=== PATIENT | male | born 1970 | race African-American/Black ===

== ENCOUNTER 2017-01-31 00:01 | Inpatient (IN) | payer MEDICAID, OTHER ==
[~2017-01-31] VITALS: Ht 182.9 cm; Wt 81.6 kg
[2017-01-31 03:28] LABS: Basophils # (auto) 0.1 uL; Basophils % (auto) 0.6 % (0.0-2.0); Eosinophils # (auto) 0 uL; Eosinophils % (auto) 0.4 % (0.0-7.0); Hematocrit 41.5 % (41.0-53.0); Hemoglobin 13.5 g/dL (13.5-17.5); Lymphocytes # (auto) 2.3 uL; Lymphocytes % (auto) 24.8 % (10.0-50.0); Mean Corpuscular Hemoglobin 27.8 pg (28.0-32.0); Mean Corpuscular Hgb Conc. 32.6 g/dL (32.0-36.0); Mean Corpuscular Volume 85.3 fL (80.0-100.0); Mean Platelet Volume 8.4 fL (6.9-10.8); Monocytes # (auto) 0.7 uL; Monocytes % (auto) 7.4 % (0.0-12.0); Neutrophils # (auto) 6.1 uL; Neutrophils % (auto) 66.8 % (37.0-80.0); Platelet Count (auto) 196 10^3/uL (140-450); Red Cell Distribution Width 13.7 % (11.8-14.3); White Blood Cell 9.1 10^3/uL (4.4-10.8)
[2017-01-31 03:57] LABS: Albumin 3.6 g/dL (3.4-5.0); Calcium 8.9 mg/dL (8.5-10.1); Potassium 3.6 mmol/L (3.5-5.1)
[2017-01-31 03:59] LABS: Bilirubin, Total 0.7 mg/dL (0.2-1.0); Total Protein 8.1 g/dL (6.4-8.2)
[2017-01-31 09:08] LABS: Urine Bilirubin Negative (Negative); Urine Blood Negative /uL (Negative); Urine Color Yellow (Yellow); Urine Glucose Normal (Normal); Urine Ketone 2+ (Negative); Urine Mucus MODERATE (None Seen); Urine Nitrite Negative (Negative); Urine RBC <1 /hpf (0 - 3); Urine Squamous Epithelial Cell FEW /hpf (<5); Urine pH 5.5 (5.0-8.0)
[2017-01-31] MEDS ORDERED: NITROGLYCERIN 0.4 MG SL TAB SL PRN (13:15)
[2017-01-31] MEDS ORDERED: MORPHINE SULF INJ 2 MG/ML SYRINGE 1ML IV PRN ×2 (13:15)
[2017-01-31] MEDS ORDERED: HYDROcodone-ACET 5/325MG TAB PO PRN (13:15)
[2017-01-31] MEDS ORDERED: LACTULOSE 20Gm/30ML SOLN PO PRN (13:15)
[2017-01-31] MEDS ORDERED: ACETAMINOPHEN 500 MG TAB PO PRN (13:15)
[2017-01-31] MEDS ORDERED: LEVETIRACETAM 500 MG TAB PO ONE (13:15)
[2017-01-31] MEDS ORDERED: cefTRIAXone 1GM/10ml IVPUSH 10 ML IV ONE (13:15)
[2017-01-31] MEDS ORDERED: PROMETHAZINE HCL 25 MG/ML 1ML IV PRN (13:15)
[2017-01-31] MEDS ORDERED: TEMAZEPAM 15 MG CAP PO PRN (13:15)
[2017-01-31] MEDS ORDERED: LORazepam 2MG/ML-1ML VIAL IV PRN (13:15)
[2017-01-31] MEDS: SODIUM CHLORIDE 0.9% 1,000 ML IV SCH (13:30)
[2017-01-31] MEDS ORDERED: KEP500T PO (13:31)
[2017-01-31] MEDS: ENOXAPARIN SOD 40 MG/0.4 ML SYRINGE SC SCH (13:50)
[2017-01-31 14:47] VITALS: BP 126/81
[2017-01-31 17:00] VITALS: BP 113/77
[2017-01-31] MEDS: LORazepam 0.5 MG TAB PO PRN (18:37)
[2017-01-31 22:00] VITALS: BP 117/76
[2017-01-31] MEDS: LEVETIRACETAM 500 MG TAB PO SCH (23:04)
[2017-02-01] MEDS: SODIUM CHLORIDE 0.9% 1,000 ML IV SCH ×2 (02:23→15:01)
[2017-02-01 04:30] VITALS: BP 118/76
[2017-02-01 08:50] VITALS: BP 108/77
[2017-02-01] MEDS: ENOXAPARIN SOD 40 MG/0.4 ML SYRINGE SC SCH (09:30)
[2017-02-01] MEDS: cefTRIAXone 1GM/10ml IVPUSH 10 ML IV SCH (09:30)
[2017-02-01] MEDS: LEVETIRACETAM 500 MG TAB PO SCH ×2 (09:30→22:19)
[2017-02-01 13:00] VITALS: BP 108/67
[2017-02-01 17:00] VITALS: BP 125/85
[2017-02-01 21:31] VITALS: BP 128/86
[2017-02-02] MEDS: HALOPERIDOL LACTATE 5 MG/ML INJ VIAL ONE ×2 (04:32→04:48)
[2017-02-02] MEDS: LORazepam 2MG/ML-1ML VIAL ONE ×2 (04:33→04:48)
[2017-02-02] MEDS ORDERED: HALOPERIDOL LACTATE 5 MG/ML INJ VIAL IM ONE (04:45)
[2017-02-02] MEDS ORDERED: LORazepam 2MG/ML-1ML VIAL IV ONE (04:45)
[2017-02-02 05:10] VITALS: BP 90/66
[2017-02-02] MEDS: SODIUM CHLORIDE 0.9% 1,000 ML IV SCH ×2 (06:52→17:51)
[2017-02-02 09:00] VITALS: BP 109/74
[2017-02-02] MEDS: ENOXAPARIN SOD 40 MG/0.4 ML SYRINGE SC SCH (09:23)
[2017-02-02] MEDS: LEVETIRACETAM 500 MG TAB PO SCH ×2 (09:23→22:00)
[2017-02-02] MEDS: cefTRIAXone 1GM/10ml IVPUSH 10 ML IV SCH (09:45)
[2017-02-02 13:00] VITALS: BP 103/73
[2017-02-02 17:00] VITALS: BP 120/73
[2017-02-02 22:00] VITALS: BP 105/67
[2017-02-03 05:00] VITALS: BP 110/75
[2017-02-03] MEDS: SODIUM CHLORIDE 0.9% 1,000 ML IV SCH ×2 (05:46→21:03)
[2017-02-03 07:03] LABS: Albumin 3.3 g/dL (3.4-5.0); BUN/Creatinine Ratio 11.3; Bilirubin, Total 0.4 mg/dL (0.2-1.0); Calcium 8.4 mg/dL (8.5-10.1); Potassium 3.7 mmol/L (3.5-5.1); Total Protein 7.4 g/dL (6.4-8.2)
[2017-02-03 07:11] LABS: Basophils # (auto) 0 uL; Basophils % (auto) 0.8 % (0.0-2.0); Eosinophils # (auto) 0.1 uL; Eosinophils % (auto) 1.9 % (0.0-7.0); Hematocrit 39.7 % (41.0-53.0); Hemoglobin 12.9 g/dL (13.5-17.5); Lymphocytes # (auto) 1.9 uL; Lymphocytes % (auto) 40.7 % (10.0-50.0); Mean Corpuscular Hemoglobin 27.6 pg (28.0-32.0); Mean Corpuscular Hgb Conc. 32.5 g/dL (32.0-36.0); Mean Corpuscular Volume 84.9 fL (80.0-100.0); Mean Platelet Volume 8.4 fL (6.9-10.8); Monocytes # (auto) 0.5 uL; Monocytes % (auto) 11.3 % (0.0-12.0); Neutrophils # (auto) 2.1 uL; Neutrophils % (auto) 45.3 % (37.0-80.0); Nucleated Red Blood Cells % 0.2 %; Platelet Count (auto) 199 10^3/uL (140-450); Red Cell Distribution Width 13.5 % (11.8-14.3); White Blood Cell 4.7 10^3/uL (4.4-10.8)
[2017-02-03 09:00] VITALS: BP 111/77
[2017-02-03] MEDS: cefTRIAXone 1GM/10ml IVPUSH 10 ML IV SCH (10:02)
[2017-02-03] MEDS: LEVETIRACETAM 500 MG TAB PO SCH ×2 (10:03→22:24)
[2017-02-03] MEDS: ENOXAPARIN SOD 40 MG/0.4 ML SYRINGE SC SCH (10:03)
[2017-02-03 13:00] VITALS: BP 124/75
[2017-02-03 17:00] VITALS: BP 120/76
[2017-02-03 21:43] VITALS: BP 116/68
[2017-02-04 04:36] VITALS: BP 118/72
[2017-02-04 08:00] VITALS: BP 113/70
[2017-02-04 09:00] VITALS: BP 113/70
[2017-02-04] MEDS: SODIUM CHLORIDE 0.9% 1,000 ML IV SCH ×2 (10:00→21:32)
[2017-02-04] MEDS: LEVETIRACETAM 500 MG TAB PO SCH ×2 (10:00→21:31)
[2017-02-04] MEDS: ENOXAPARIN SOD 40 MG/0.4 ML SYRINGE SC SCH (10:00)
[2017-02-04 13:00] VITALS: BP_SYST 121; BP_SYST 125; BP_DIAS 74; BP_DIAS 76
[2017-02-04 17:00] VITALS: BP 121/76
[2017-02-04 17:04] VITALS: BP 121/76
[2017-02-04] MEDS: LORazepam 0.5 MG TAB PO PRN (23:50)
== END 2017-02-05 00:12 | DRG 53 ==
LOC: ER 00:01 → TELE 00:02 → TELE-WESTW 13:53
PROVIDERS: ADMIT Internal Medicine; ATTEND Internal Medicine
DX: G40.209 Localization-related (focal) (partial) symptomatic epilepsy and epileptic syndromes with complex partial seizures, not intractable, without status epilepticus (principal); E44.1 Mild protein-calorie malnutrition; R47.01 Aphasia; N31.9 Neuromuscular dysfunction of bladder, unspecified; G81.91 Hemiplegia, unspecified affecting right dominant side; F17.210 Nicotine dependence, cigarettes, uncomplicated; K59.00 Constipation, unspecified; F41.9 Anxiety disorder, unspecified; G47.00 Insomnia, unspecified; N39.498 Other specified urinary incontinence; G40.409 Other generalized epilepsy and epileptic syndromes, not intractable, without status epilepticus; Z68.24 Body mass index [BMI] 24.0-24.9, adult; Z79.899 Other long term (current) drug therapy; Z87.820 Personal history of traumatic brain injury; Z91.14 Patient's other noncompliance with medication regimen; Z91.19 Patient's noncompliance with other medical treatment and regimen
CPT/HCPCS: 36415; 70450; 70486; 71010; 80053; 80307; 81001; 82542; 82962; 85025; 85652; 87086; 96365; A4565

== ENCOUNTER 2017-04-30 07:17 | Emergency (ER) | payer MEDICAID ==
[~2017-04-30] VITALS: Ht 177.8 cm; Wt 79.4 kg
[~2017-04-30 07:17] MED LIST: KEP500T PO
[2017-04-30 08:19] LABS: Basophils # (auto) 0 uL; Eosinophils # (auto) 0 uL; Monocytes # (auto) 0.5 uL; Monocytes % (auto) 11.1 % (0.0-12.0); Neutrophils # (auto) 2.2 uL; Nucleated Red Blood Cells % 0.2 %
[2017-04-30 08:21] LABS: Basophils % (auto) 0.9 % (0.0-2.0); Eosinophils % (auto) 0.8 % (0.0-7.0); Hematocrit 40.2 % (41.0-53.0); Hemoglobin 12.9 g/dL (13.5-17.5); Lymphocytes # (auto) 1.6 uL; Lymphocytes % (auto) 36.9 % (10.0-50.0); Mean Corpuscular Hemoglobin 26.8 pg (28.0-32.0); Mean Corpuscular Volume 83.8 fL (80.0-100.0); Neutrophils % (auto) 50.3 % (37.0-80.0); Platelet Count (auto) 185 10^3/uL (140-450); White Blood Cell 4.3 10^3/uL (4.4-10.8)
[2017-04-30 08:38] LABS: Albumin 3.5 g/dL (3.4-5.0); Bilirubin, Total 0.5 mg/dL (0.2-1.0); Calcium 8.6 mg/dL (8.5-10.1); Potassium 3.5 mmol/L (3.5-5.1); Total Protein 7.8 g/dL (6.4-8.2)
[2017-04-30 09:02] LABS: Urine Bacteria NONE SEEN /hpf (None Seen); Urine Blood Negative /uL (Negative); Urine Specific Gravity 1.016 (1.001-1.035); Urine WBC 1 /hpf (0 - 3)
[2017-04-30 09:06] LABS: Alcohol, Urine < 3.0 mg/dL (0-5); Amphetamine Screen, Urine NEGATIVE (NEGATIVE); Barbiturate Scree,Urine NEGATIVE (NEGATIVE); Benzodiazephine Screen, Urine NEGATIVE (NEGATIVE); Cannabinoid Screen, Urine NEGATIVE (NEGATIVE); Cocaine Screen, Urine NEGATIVE (NEGATIVE); Opiate Scree,Urine NEGATIVE (NEGATIVE); Phencyclidine Screen, Urine NEGATIVE (NEGATIVE)
[2017-04-30 09:30] VITALS: BP 117/74
[2017-04-30] MEDS ORDERED: LORazepam 2MG/ML-1ML VIAL IV ONE (09:45)
== END 2017-04-30 12:06 | disposition home or self-care (01) ==
LOC: EDBD 07:17 → ER 07:17
DX: G40.909 Epilepsy, unspecified, not intractable, without status epilepticus (principal); F17.210 Nicotine dependence, cigarettes, uncomplicated
CPT/HCPCS: 36415; 70450; 80053; 80307; 81001; 85025; 96374; 99285; J2060